=== PATIENT | male | born 1975 | race Two or more races ===

== ENCOUNTER 2023-07-12 18:46 | Observation (INO) ==
[2023-07-12 18:57] VITALS: RESP 20
--- NOTE | 2023-07-12 19:59 | DR.EXTPAIN ---
HPI Time seen Time Seen by Provider: 07/12/23 19:59 PCP Primary Care Physician: EDEN Complaint/Symptoms Chief Complaint Doctor Comments: 48-year-old male presents for evaluation. Patient was constipated this past week, no bowel movement for 4 days. armacist recommended a laxative for him to take. Patient took it last night, double dose then was recommended. Having diarrhea since, with 6 episodes of blood/clots in it. Not having any abdominal pain. No dizziness or lightheadedness. No fever, chills, upper respiratory symptoms. Not on a blood thinner. Never had problems with his bowels before. Chief Complaint:: Patient stated that hes been having bloody bowel movments since 3am today, Patient stated that he drank a laxitive almost a week ago and since then he had abdominal pain. COVID-19 Coronavirus risk:travel/contact w/high risk person: No Has patient experienced Coronavirus symptoms: No Nurses notes reviewed Nurses Notes Review: Yes Source History Provided: Patient Mode of arrival Mode of Arrival: Ambulatory Timing Onset of Chief Complaint: 07/12/23 PMH PMH Past Medical History: Yes Past Medical History Comment: Gastric ulcers, Gastritis Past Surgical History: Yes Surgical History: Other Past Surgical History Comment: Herina Repair Family History History of Family Medical Conditions: No Social History Alcohol Use: Occasionally Do you use any recreational Drugs:: No Lives With: Family Lives Where: Home Travel Risk Coronavirus risk:travel/contact w/high risk person: No Has patient experienced Coronavirus symptoms: No Infectious screening In the last 2 months have you had wt loss of >10#?: NO Have you had fever, night sweats or hemotysis?: No Have you traveled outside the country in the last 6 months?: No Isolation: Standard ROS Review of Systems Constitutional: No Symptoms Reported Eyes: No Symptoms Reported ENTM: No Symptoms Reported Respiratoy: No Symptoms Reported Cardiovascular: No Symptoms Reported Gastrointestinal/Abdominal: See HPI Genitourinary: No Symptoms Reported Neurological: No Symptoms Reported Musculoskeletal: No Symptoms Reported Integumentary: No Symptoms Reported Hematologic/Lymphatic: No Symptoms Reported All Other Systems: Reviewed and Negative PE Vital Signs Vitals: Vital Signs Temperature 98.5 F Pulse Rate 117 Respiratory Rate 20 Blood Pressure 138/76 O2 Sat by Pulse Oximetry 98 General General Appearance: Alert and In No Apparent Distress Eyes Eye exam: PERRL and EOMI ENT ENT Exam: Mucous Membranes Moist Neck Neck Exam: Normal Inspection Respiratory Respiratory Exam: Normal Lung Sounds Bilat; negative Accessory Muscle Use or Respiratory Distress Cardiovascular Cardiovascular Exam: Regular Rate, Normal Rhythm and Normal Heart Sounds Abdominal Exam Abdominal Exam: Normal Inspection, Soft and Hyperactive Bowel Sounds (L side); negative Tenderness or Guarding Extremities Extremities Exam: Normal Inspection Neurological Neurological Exam: Alert, Oriented X3 and CN II-XII Intact; negative Motor Sensory Deficit Skin Skin Exam: Warm and Dry COURSE Treatment Treatment: 48-year-old male with bright red blood in his stools since early a.m. hours. No distress, not dizzy. Work-up initiated. Patient given IV fluids. 2215 -Labs overall acceptable. Does have mild anemia with hemoglobin 10.0. Will obtain a CT of the abdomen pelvis with IV contrast. 2300 -CT is nonspecific fluid-filled stomach, intestines consistent with a gastroenteritis picture. There is diffuse colonic diverticulosis, but no diverticulitis. Patient's lower GI bleed concern for possible bleeding diverticulum, 6 episodes of bloody stools. Vital signs remained stable. Discussed with surgery, Dr. Sukhwinder dodge. He will admit the patient, and plan on lower GI scoping later today. ROR Labs Reviewed Laboratory Results Reviewed?: Yes 07/12/23 20:20 07/12/23 20:20 Laboratory: WBC 7.4 X10^3/uL (3.6-10.0) 07/12/23 20:20 RBC 3.16 X10^6/uL (4.7-6.0) L 07/12/23 20:20 Hgb 10.0 g/dL (13.5-18.0) L 07/12/23 20:20 Hct 28.4 % (42.0-54.0) L 07/12/23 20:20 MCV 89.8 fL (80.0-100.0) 07/12/23 20:20 MCH 31.7 pg (27.0-34.0) 07/12/23 20:20 MCHC 35.3 g/dL (33.0-35.0) H 07/12/23 20:20 RDW 12.2 % (11.6-16.5) 07/12/23 20:20 Plt Count 241 X10^3/uL (150.0-450.0) 07/12/23 20:20 MPV 8.5 fL (7.4-11.0) 07/12/23 20:20 Neut % (Auto) 50.9 % (42.0-75.0) 07/12/23 20:20 Lymph % (Auto) 38.0 % (21.0-51.0) 07/12/23 20:20 Ocean % (Auto) 6.3 % (0.0-13.0) 07/12/23 20:20 Eos % (Auto) 3.2 % (0.9-2.9) H 07/12/23 20:20 Baso % (Auto) 1.6 % (0.2-1.0) H 07/12/23 20:20 Neut # (Auto) 3.8 x10^3/uL (2.2-4.8) 07/12/23 20:20 Lymph # (Auto) 2.8 X10^3/uL (1.3-2.9) 07/12/23 20:20 Ocean # (Auto) 0.5 x10^3/uL (0.3-0.8) 07/12/23 20:20 Eos # (Auto) 0.2 x10^3/uL (0.0-0.2) 07/12/23 20:20 Baso # (Auto) 0.1 X10^3/uL (0.0-0.1) 07/12/23 20:20 Absolute Nucleated RBC 0.1 /100WBC 07/12/23 20:20 Sodium 139 mmol/L (136-145) 07/12/23 20:20 Corrected Sodium 140 mmol/L (136-145) 07/12/23 20:20 Potassium 3.7 mmol/L (3.5-5.1) 07/12/23 20:20 Chloride 107 mmol/L (98-107) 07/12/23 20:20 Carbon Dioxide 25.4 mmol/L (21-32) 07/12/23 20:20 BUN 22 mg/dL (7-18) H 07/12/23 20:20 Creatinine 0.98 mg/dL (0.70-1.30) 07/12/23 20:20 Est GFR (MDRD) Af Amer > 60 (>60) 07/12/23 20:20 Est GFR (MDRD) Non-Af > 60 (>60) 07/12/23 20:20 Glucose 130 mg/dL (65-99) H 07/12/23 20:20 Calcium 7.2 mg/dL (8.5-10.1) L 07/12/23 20:20 Corrected Calcium 8.4 mg/dL (8.5-10.1) L 07/12/23 20:20 Total Bilirubin 0.20 mg/dL (0.2-1.0) 07/12/23 20:20 AST < 6 Units/L (15-37) L 07/12/23 20:20 ALT 26 Units/L (12-78) 07/12/23 20:20 Alkaline Phosphatase 51 Units/L (46-116) 07/12/23 20:20 Total Protein 5.3 g/dL (6.4-8.2) L 07/12/23 20:20 Albumin 2.5 g/dL (3.4-5.0) L 07/12/23 20:20 Globulin 2.8 g/dL (2.5-4.5) 07/12/23 20:20 Albumin/Globulin Ratio 0.9 Ratio (1.1-2.1) L 07/12/23 20:20 Lipase 34 Units/L (16-77) 07/12/23 20:20 Hgb 10 XRAY XRAY Interpreted by: Radiologist X-ray Results: EXAM: CT ABDOMEN AND PELVIS WITH INTRAVENOUS CONTRAST HISTORY: Bloody bowel movements since 3 AM today. Drank a laxative almost 1 week ago and since then has had abdominal pain. TECHNIQUE: Spiral axial CT images are obtained through the abdomen and pelvis without the administration of oral contrast and with the administration of intravenous contrast. Additional coronal and sagittal reformatted images are reconstructed. DOSIMETRY: Total DLP 397.82 mGycm; CTDI 7.22 mGy COMPARISON: None available. FINDINGS: GASTROINTESTINAL TRACT: Nonspecific, fluid-filled, nondilated stomach, small bowel loops, large bowel loops, and rectum; presumed gastroenteritis with impending diarrhea. Clinical correlation is advised. There is diffuse colonic diverticulosis, most prominent in the ascending colon, distal descending colon, and sigmoid regions, without evidence for diverticulitis. No evidence for bowel herniation, bowel obstruction, or colitis. A normal-appearing appendix is seen. GENITOURINARY SYSTEM: There is an approximately 1.6 cm exophytic right lower pole renal cyst. The kidneys are otherwise unremarkable. There is no ureteral calculus or stigmata of obstructive uropathy. The urinary bladder, seminal vesicles, prostate gland appear grossly unremarkable for a non-dedicated exam. CT ABDOMEN: The liver, spleen, pancreas, adrenal glands, gallbladder, aorta, and inferior vena cava are within normal limits for a CT scan. There is no intra- abdominal or retroperitoneal lymphadenopathy, free fluid, or free air seen. No abdominal herniation is noted. CT PELVIS: No pelvic sidewall or inguinal lymphadenopathy is seen. No inguinal herniation is noted. No free fluid or free air is seen. BONES AND JOINTS: The visualized bony structures are within normal limits. LUNG BASES: There is a tiny anterior right basilar calcified granuloma in keeping with chronic sequela of prior granulomatous disease. The lung bases are otherwise clear. IMPRESSION: 1. Nonspecific, fluid-filled, nondilated stomach, small bowel loops, large bowel loops, and rectum; presumed gastroenteritis with impending diarrhea. Clinical correlation is advised. 2. Diffuse colonic diverticulosis, most prominent in the ascending colon, distal descending colon, and sigmoid regions, without evidence for diverticulitis. 3. No evidence for bowel herniation, bowel obstruction, appendicitis or colitis. 4. No evidence for pyelonephritis, renal stone disease or obstructive uropathy. 5. No free fluid, free air, mass lesions, or lymphadenopathy seen. THIS IS AN ELECTRONICALLY VERIFIED FINAL REPORT 07/12/2023 10:41 PM - Electronically signed by Evelina Kelley Opioid Opioid Risk Tool Age (Roland box if 16-45): No History of Preadolescent Sexual Abuse: No Total: 0 Total Score Risk Category: Low Risk Copyright: Gadiel WINKLER predicting aberrant behaviors Discharge Plan Diagnosis Discharge Problem: Acute lower gastrointestinal bleeding Discharge Plan Patient Disposition: 09 ADMITTED INPATIENT Condition: Stable Orders to Discharge Patient Discharge Orders: Transfer (Routine); Ordered 07/12/23 Ordered By: Dileep Pedro
[2023-07-12] MEDS ORDERED: NS 1,000 ML IV 1,000 ML IV ONE (20:08)
[2023-07-12] MEDS ORDERED: NS 1,000 ML IV 1,000 ML ONE (20:12)
[2023-07-12 20:49] LABS: BASOPHILS # (AUTO) 0.1 X10^3/uL (0.0-0.1); BASOPHILS % (AUTO) 1.6 % (0.2-1.0); EOSINOPHILS # (AUTO) 0.2 x10^3/uL (0.0-0.2); EOSINOPHILS % (AUTO) 3.2 % (0.9-2.9); HEMATOCRIT 28.4 % (42.0-54.0); LYMPHOCYTES # (AUTO) 2.8 X10^3/uL (1.3-2.9); MEAN CORPUSCULAR HEMOGLOBIN 31.7 pg (27.0-34.0); MEAN CORPUSCULAR HGB CONC 35.3 g/dL (33.0-35.0); MEAN CORPUSCULAR VOLUME 89.8 fL (80.0-100.0); MEAN PLATELET VOLUME 8.5 fL (7.4-11.0); MONOCYTES # (AUTO) 0.5 x10^3/uL (0.3-0.8); MONOCYTES % (AUTO) 6.3 % (0.0-13.0); NEUTROPHILS # (AUTO) 3.8 x10^3/uL (2.2-4.8); NEUTROPHILS % (AUTO) 50.9 % (42.0-75.0); PLATELET COUNT 241 X10^3/uL (150.0-450.0); RED BLOOD COUNT 3.16 X10^6/uL (4.7-6.0); RED CELL DISTRIBUTION WIDTH 12.2 % (11.6-16.5); WHITE BLOOD COUNT 7.4 X10^3/uL (3.6-10.0)
[2023-07-12 21:04] LABS: ALANINE AMINOTRANSFERASE 26 Units/L (12-78); ALBUMIN 2.5 g/dL (3.4-5.0); ALKALINE PHOSPHATASE 51 Units/L (46-116); ASPARTATE AMINO TRANSFERASE < 6 Units/L (15-37); BLOOD UREA NITROGEN 22 mg/dL (7-18); CALCIUM 7.2 mg/dL (8.5-10.1); CARBON DIOXIDE 25.4 mmol/L (21-32); CHLORIDE 107 mmol/L (98-107); COR CA(FOR HYPOALB) 8.4 mg/dL (8.5-10.1); COR NA(FOR HYPERGLY) 140 mmol/L (136-145); CREATININE 0.98 mg/dL (0.70-1.30); GLUCOSE 130 mg/dL (65-99); LIPASE 34 Units/L (16-77); POTASSIUM 3.7 mmol/L (3.5-5.1); SODIUM 139 mmol/L (136-145); TOTAL PROTEIN 5.3 g/dL (6.4-8.2); eGFR NON BLACK RACES > 60 (>60)
[2023-07-12] MEDS ORDERED: OMNIPAQUE 350 mg/mL 100 mL BTL 100 ML ONE (21:53)
[2023-07-12] MEDS ORDERED: NS 100 ML IV 100 ML ONE (21:53)
--- NOTE | 2023-07-12 22:44 | CT ---
EXAM: CT ABDOMEN AND PELVIS WITH INTRAVENOUS CONTRASTHISTORY: Bloody bowel movements since 3 AM today. Drank a laxative almost 1 week ago and since then has had abdominal pain.TECHNIQUE: Spiral axial CT images are obtained through the abdomen and pelvis without the administration of oral contrast and with the administration of intravenous contrast. Additional coronal and sagittal reformatted images are reconstructed.DOSIMETRY: Total DLP 397.82 mGycm; CTDI 7.22 mGyCOMPARISON: None available.FINDINGS:GASTROINTESTINAL TRACT: Nonspecific, fluid-filled, nondilated stomach, small bowel loops, large bowel loops, and rectum; presumed gastroenteritis with impending diarrhea. Clinical correlation is advised. There is diffuse colonic diverticulosis, most prominent in the ascending colon, distal descending colon, and sigmoid regions, without evidence for diverticulitis. No evidence for bowel herniation, bowel obstruction, or colitis. A normal-appearing appendix is seen.GENITOURINARY SYSTEM: There is an approximately 1.6 cm exophytic right lower pole renal cyst. The kidneys are otherwise unremarkable. There is no ureteral calculus or stigmata of obstructive uropathy. The urinary bladder, seminal vesicles, prostate gland appear grossly unremarkable for a non-dedicated exam.CT ABDOMEN: The liver, spleen, pancreas, adrenal glands, gallbladder, aorta, and inferior vena cava are within normal limits for a CT scan. There is no intra-abdominal or retroperitoneal lymphadenopathy, free fluid, or free air seen. No abdominal herniation is noted.CT PELVIS: No pelvic sidewall or inguinal lymphadenopathy is seen. No inguinal herniation is noted. No free fluid or free air is seen.BONES AND JOINTS: The visualized bony structures are within normal limits.LUNG BASES: There is a tiny anterior right basilar calcified granuloma in keeping with chronic sequela of prior granulomatous disease. The lung bases are otherwise clear.IMPRESSION:1. Nonspecific, fluid-filled, nondilated stomach, small bowel loops, large bowel loops, and rectum; presumed gastroenteritis with impending diarrhea. Clinical correlation is advised.2. Diffuse colonic diverticulosis, most prominent in the ascending colon, distal descending colon, and sigmoid regions, without evidence for diverticulitis.3. No evidence for bowel herniation, bowel obstruction, appendicitis or colitis.4. No evidence for pyelonephritis, renal stone disease or obstructive uropathy.5. No free fluid, free air, mass lesions, or lymphadenopathy seen.THIS IS AN ELECTRONICALLY VERIFIED FINAL [id number]/12/2023 10:41 PM - Electronically signed by Evelina Kelley
[2023-07-13] MEDS ORDERED: ZOFRAN INJ 4 MG VIAL IVP PRN (00:15)
[2023-07-13] MEDS ORDERED: CONSULT PHARMACY - POTASSIUM & MAGNESIUM XX SCH ×2 (00:15→08:00)
[2023-07-13 00:30] VITALS: BMI 33.0
[2023-07-13] MEDS: D5 1/2 NS 1,000 ML 1,000 ML IV SCH (00:45)
[2023-07-13] MEDS ORDERED: K-DUR TAB 20 MEQ PO SCH (01:00)
[2023-07-13] MEDS: K-RIDER 10 MEQ/NS 100 ML 10 MEQ/100 ML BAG IV SCH ×2 (01:00→04:33)
[2023-07-13] MEDS ORDERED: HIBICLENS WASH ONE (04:44)
[2023-07-13] MEDS ORDERED: HIBICLENS WASH EXT ONE (04:49)
[2023-07-13 06:43] LABS: BASOPHILS % (AUTO) 0.7 % (0.2-1.0); EOSINOPHILS # (AUTO) 0.2 x10^3/uL (0.0-0.2); EOSINOPHILS % (AUTO) 2.7 % (0.9-2.9); HEMATOCRIT 21.5 % (42.0-54.0); HEMOGLOBIN 7.6 g/dL (13.5-18.0); LYMPHOCYTES # (AUTO) 1.9 X10^3/uL (1.3-2.9); LYMPHOCYTES % (AUTO) 28.2 % (21.0-51.0); MEAN CORPUSCULAR HEMOGLOBIN 31.4 pg (27.0-34.0); MEAN CORPUSCULAR HGB CONC 35.3 g/dL (33.0-35.0); MEAN CORPUSCULAR VOLUME 89.1 fL (80.0-100.0); MEAN PLATELET VOLUME 8.6 fL (7.4-11.0); MONOCYTES # (AUTO) 0.5 x10^3/uL (0.3-0.8); MONOCYTES % (AUTO) 6.8 % (0.0-13.0); NEUTROPHILS # (AUTO) 4.3 x10^3/uL (2.2-4.8); NEUTROPHILS % (AUTO) 61.6 % (42.0-75.0); PLATELET COUNT 209 X10^3/uL (150.0-450.0); RED BLOOD COUNT 2.42 X10^6/uL (4.7-6.0); RED CELL DISTRIBUTION WIDTH 12.6 % (11.6-16.5); WHITE BLOOD COUNT 6.9 X10^3/uL (3.6-10.0)
[2023-07-13 06:58] LABS: ALANINE AMINOTRANSFERASE 21 Units/L (12-78); ALBUMIN 2.3 g/dL (3.4-5.0); ALKALINE PHOSPHATASE 40 Units/L (46-116); ASPARTATE AMINO TRANSFERASE 7 Units/L (15-37); BLOOD UREA NITROGEN 21 mg/dL (7-18); CALCIUM 6.8 mg/dL (8.5-10.1); CARBON DIOXIDE 27.3 mmol/L (21-32); CHLORIDE 108 mmol/L (98-107); COR CA(FOR HYPOALB) 8.2 mg/dL (8.5-10.1); COR NA(FOR HYPERGLY) 140 mmol/L (136-145); CREATININE 0.82 mg/dL (0.70-1.30); GLUCOSE 127 mg/dL (65-99); POTASSIUM 3.6 mmol/L (3.5-5.1); SODIUM 139 mmol/L (136-145); TOTAL PROTEIN 4.6 g/dL (6.4-8.2); eGFR NON BLACK RACES > 60 (>60)
[2023-07-13] MEDS ORDERED: K-RIDER 10 MEQ/NS 100 ML 10 MEQ/100 ML BAG IV SCH (09:00)
[2023-07-13] MEDS ORDERED: DIPRIVAN VIAL 20 ML ONE ×2 (11:46→12:08)
[2023-07-13] MEDS ORDERED: NS 500 ML IV 500 ML IV ONE (11:47)
[2023-07-13] MEDS ORDERED: EPHEDRINE SULFATE INJ ONE (12:13)
[2023-07-13 12:49] LABS: EOSINOPHILS # (AUTO) 0.1 x10^3/uL (0.0-0.2)
[2023-07-13 12:53] LABS: BASOPHILS % (AUTO) 0.5 % (0.2-1.0); LYMPHOCYTES % (AUTO) 30.4 % (21.0-51.0); MEAN CORPUSCULAR HEMOGLOBIN 31.5 pg (27.0-34.0); MEAN CORPUSCULAR HGB CONC 35.1 g/dL (33.0-35.0); MEAN CORPUSCULAR VOLUME 89.5 fL (80.0-100.0); MONOCYTES # (AUTO) 0.4 x10^3/uL (0.3-0.8); MONOCYTES % (AUTO) 6.3 % (0.0-13.0); NEUTROPHILS % (AUTO) 60.8 % (42.0-75.0); PLATELET COUNT 186 X10^3/uL (150.0-450.0); RED BLOOD COUNT 2.05 X10^6/uL (4.7-6.0); RED CELL DISTRIBUTION WIDTH 12.6 % (11.6-16.5); WHITE BLOOD COUNT 6.6 X10^3/uL (3.6-10.0)
[2023-07-13 12:59] LABS: HEMATOCRIT 18.4 % (42.0-54.0); HEMOGLOBIN 6.4 g/dL (13.5-18.0)
[2023-07-13] MEDS ORDERED: NS 250 ML IV 250 ML IV ONE (15:52)
[2023-07-14 01:20] LABS: HEMATOCRIT 23.9 % (42.0-54.0); HEMOGLOBIN 8.3 g/dL (13.5-18.0)
[2023-07-14] MEDS: D5 1/2 NS 1,000 ML 1,000 ML IV SCH ×2 (02:27→04:56)
[2023-07-14 04:55] VITALS: O2SAT 97
[2023-07-14 05:27] LABS: BASOPHILS % (AUTO) 0.4 % (0.2-1.0); EOSINOPHILS # (AUTO) 0.2 x10^3/uL (0.0-0.2); EOSINOPHILS % (AUTO) 3.2 % (0.9-2.9); HEMATOCRIT 23.3 % (42.0-54.0); HEMOGLOBIN 8.3 g/dL (13.5-18.0); LYMPHOCYTES # (AUTO) 2.1 X10^3/uL (1.3-2.9); LYMPHOCYTES % (AUTO) 35.6 % (21.0-51.0); MEAN CORPUSCULAR HEMOGLOBIN 31.9 pg (27.0-34.0); MEAN CORPUSCULAR HGB CONC 35.8 g/dL (33.0-35.0); MEAN CORPUSCULAR VOLUME 89.1 fL (80.0-100.0); MEAN PLATELET VOLUME 8.8 fL (7.4-11.0); MONOCYTES # (AUTO) 0.5 x10^3/uL (0.3-0.8); MONOCYTES % (AUTO) 7.9 % (0.0-13.0); NEUTROPHILS % (AUTO) 52.9 % (42.0-75.0); PLATELET COUNT 168 X10^3/uL (150.0-450.0); RED BLOOD COUNT 2.61 X10^6/uL (4.7-6.0); RED CELL DISTRIBUTION WIDTH 12.8 % (11.6-16.5); WHITE BLOOD COUNT 5.8 X10^3/uL (3.6-10.0)
[2023-07-14 05:43] LABS: ALANINE AMINOTRANSFERASE 26 Units/L (12-78); ALBUMIN 2.3 g/dL (3.4-5.0); ALKALINE PHOSPHATASE 41 Units/L (46-116); ASPARTATE AMINO TRANSFERASE 12 Units/L (15-37); BLOOD UREA NITROGEN 8 mg/dL (7-18); CALCIUM 6.9 mg/dL (8.5-10.1); CARBON DIOXIDE 26.7 mmol/L (21-32); CHLORIDE 107 mmol/L (98-107); COR CA(FOR HYPOALB) 8.3 mg/dL (8.5-10.1); COR NA(FOR HYPERGLY) 138 mmol/L (136-145); CREATININE 0.72 mg/dL (0.70-1.30); GLUCOSE 111 mg/dL (65-99); MAGNESIUM 1.8 mg/dL (2.0-2.9); POTASSIUM 3.3 mmol/L (3.5-5.1); SODIUM 138 mmol/L (136-145); TOTAL PROTEIN 4.7 g/dL (6.4-8.2); eGFR NON BLACK RACES > 60 (>60)
[2023-07-14] MEDS ORDERED: CONSULT PHARMACY - POTASSIUM & MAGNESIUM XX SCH (07:00)
[2023-07-14] MEDS ORDERED: K-RIDER 10 MEQ/NS 100 ML 10 MEQ/100 ML BAG IV SCH (09:00)
[2023-07-14] MEDS ORDERED: D5 1/2 NS + KCL 20 MEQ/L 1,000 ML with MAGNESIUM SULFATE 50% INJ VIAL 1 G IV SCH ×2 (09:00)
[2023-07-14] MEDS ORDERED: MAGNESIUM SULFATE 1 GRAM/100 mL PREMIX 1 G/100 ML BAG IV SCH (09:00)
[2023-07-14 12:42] VITALS: BP 117/68; PULSE 86; TEMP 98
== END 2023-07-14 13:15 | disposition home or self-care (01) ==
LOC: MED/SURG 18:46 → ER 18:46 → MED/SURG 23:58
PROVIDERS: ADMIT Surgery; ATTEND Surgery
DX: D64.89 Other specified anemias; K92.2 Gastrointestinal hemorrhage, unspecified; D12.3 Benign neoplasm of transverse colon

== ENCOUNTER 2023-07-21 11:37 | Observation (INO) ==
[2023-07-21 13:58] VITALS: BMI 33.0
[2023-07-21] MEDS: D5 1/2 NS 1,000 ML 1,000 ML IV SCH (17:44)
[2023-07-21 18:30] LABS: BASOPHILS % (AUTO) 0.5 % (0.2-1.0); EOSINOPHILS # (AUTO) 0.2 x10^3/uL (0.0-0.2); EOSINOPHILS % (AUTO) 2.2 % (0.9-2.9); LYMPHOCYTES # (AUTO) 2.1 X10^3/uL (1.3-2.9); LYMPHOCYTES % (AUTO) 31.3 % (21.0-51.0); MEAN CORPUSCULAR HEMOGLOBIN 32.7 pg (27.0-34.0); MEAN CORPUSCULAR HGB CONC 34.2 g/dL (33.0-35.0); MEAN CORPUSCULAR VOLUME 95.6 fL (80.0-100.0); MEAN PLATELET VOLUME 7.3 fL (7.4-11.0); MONOCYTES # (AUTO) 0.3 x10^3/uL (0.3-0.8); MONOCYTES % (AUTO) 4.6 % (0.0-13.0); NEUTROPHILS # (AUTO) 4.1 x10^3/uL (2.2-4.8); NEUTROPHILS % (AUTO) 61.4 % (42.0-75.0); PLATELET COUNT 389 X10^3/uL (150.0-450.0); RED BLOOD COUNT 1.79 X10^6/uL (4.7-6.0); RED CELL DISTRIBUTION WIDTH 15.4 % (11.6-16.5); WHITE BLOOD COUNT 6.7 X10^3/uL (3.6-10.0)
[2023-07-21 18:43] LABS: HEMATOCRIT 17.1 % (42.0-54.0); HEMOGLOBIN 5.8 g/dL (13.5-18.0)
[2023-07-21 18:47] LABS: ALANINE AMINOTRANSFERASE 27 Units/L (12-78); ALBUMIN 2.6 g/dL (3.4-5.0); ALKALINE PHOSPHATASE 46 Units/L (46-116); ASPARTATE AMINO TRANSFERASE 11 Units/L (15-37); BLOOD UREA NITROGEN 16 mg/dL (7-18); CALCIUM 7.1 mg/dL (8.5-10.1); CARBON DIOXIDE 29.9 mmol/L (21-32); CHLORIDE 104 mmol/L (98-107); COR CA(FOR HYPOALB) 8.2 mg/dL (8.5-10.1); COR NA(FOR HYPERGLY) 138 mmol/L (136-145); CREATININE 1.04 mg/dL (0.70-1.30); GLUCOSE 155 mg/dL (65-99); POTASSIUM 3.7 mmol/L (3.5-5.1); SODIUM 137 mmol/L (136-145); TOTAL PROTEIN 5.6 g/dL (6.4-8.2); eGFR NON BLACK RACES > 60 (>60)
[2023-07-21] MEDS ORDERED: CONSULT PHARMACY - POTASSIUM & MAGNESIUM XX SCH (19:00)
[2023-07-21] MEDS ORDERED: K-DUR TAB 20 MEQ PO ONE (20:00)
[2023-07-21 20:18] VITALS: RESP 20
[2023-07-21] MEDS ORDERED: NS 250 ML IV 250 ML IV ONE (20:43)
[2023-07-22] MEDS: D5 1/2 NS 1,000 ML 1,000 ML IV SCH ×3 (02:07→10:38)
[2023-07-22 02:12] LABS: HEMATOCRIT 22.7 % (42.0-54.0)
[2023-07-22 02:13] LABS: HEMOGLOBIN 7.6 g/dL (13.5-18.0)
[2023-07-22 04:47] VITALS: PULSE 83
[2023-07-22 06:11] LABS: BASOPHILS % (AUTO) 0.7 % (0.2-1.0); EOSINOPHILS # (AUTO) 0.2 x10^3/uL (0.0-0.2); EOSINOPHILS % (AUTO) 2.5 % (0.9-2.9); HEMATOCRIT 23.2 % (42.0-54.0); HEMOGLOBIN 7.8 g/dL (13.5-18.0); LYMPHOCYTES # (AUTO) 2.1 X10^3/uL (1.3-2.9); LYMPHOCYTES % (AUTO) 33.2 % (21.0-51.0); MEAN CORPUSCULAR HGB CONC 33.8 g/dL (33.0-35.0); MEAN CORPUSCULAR VOLUME 94.9 fL (80.0-100.0); MEAN PLATELET VOLUME 7.2 fL (7.4-11.0); MONOCYTES # (AUTO) 0.6 x10^3/uL (0.3-0.8); MONOCYTES % (AUTO) 9.2 % (0.0-13.0); NEUTROPHILS # (AUTO) 3.5 x10^3/uL (2.2-4.8); NEUTROPHILS % (AUTO) 54.4 % (42.0-75.0); PLATELET COUNT 371 X10^3/uL (150.0-450.0); RED BLOOD COUNT 2.44 X10^6/uL (4.7-6.0); RED CELL DISTRIBUTION WIDTH 14.3 % (11.6-16.5); WHITE BLOOD COUNT 6.4 X10^3/uL (3.6-10.0)
[2023-07-22 06:31] LABS: ALANINE AMINOTRANSFERASE 28 Units/L (12-78); ALBUMIN 2.5 g/dL (3.4-5.0); ALKALINE PHOSPHATASE 44 Units/L (46-116); ASPARTATE AMINO TRANSFERASE 13 Units/L (15-37); BLOOD UREA NITROGEN 13 mg/dL (7-18); CALCIUM 7.1 mg/dL (8.5-10.1); CARBON DIOXIDE 28.7 mmol/L (21-32); CHLORIDE 107 mmol/L (98-107); COR CA(FOR HYPOALB) 8.3 mg/dL (8.5-10.1); CREATININE 0.95 mg/dL (0.70-1.30); GLUCOSE 103 mg/dL (65-99); POTASSIUM 4.3 mmol/L (3.5-5.1); SODIUM 142 mmol/L (136-145); TOTAL PROTEIN 5.6 g/dL (6.4-8.2); eGFR NON BLACK RACES > 60 (>60)
[2023-07-22 08:05] VITALS: BP 167/84; TEMP 97.4; O2SAT 99
== END 2023-07-22 12:30 | disposition home or self-care (01) ==
LOC: MED/SURG
PROVIDERS: ADMIT Surgery; ATTEND Surgery
DX: K57.31 Diverticulosis of large intestine without perforation or abscess with bleeding; D62 Acute posthemorrhagic anemia; R73.09 Other abnormal glucose